=== PATIENT | male | born 1985 | race Caucasian/White ===

== ENCOUNTER 2020-08-27 17:42 | Emergency (ER) | payer OTHER, SELFPAY ==
[2020-08-27 18:05] VITALS: BP 130/92; PULSE 100; RESP 18; TEMP 36.6; O2SAT 100
--- NOTE | 2020-08-27 18:25 | ED.LOWEXIN ---
HPI - Extremity Injury (Lower) General Chief Complaint: Extremity Injury, Lower Stated Complaint: Rt knee pain Source: patient and RN notes reviewed Mode of arrival: ambulatory (Require chest) History of Present Illness HPI Narrative: This is a 35-year-old male that presented to urgent care with complaints a swollen, warm, tender to touch right knee. According to patient he developed what he describes as gout to his right lateral side of his foot which resolved with the use of naproxen. He notes that shortly afterwards he developed gout to his right knee noted that naproxen did not resolve pain and tenderness that he was experiencing in his right knee. Patient does have a history of gout. He notes that he took over prescription allopurinol without any relief. Patient is currently ambulating with crutches and have limited range of motion due to pain to the right knee. The patient denies SOB, CP, palpitation, extremity numbness, lightheadedness, dizziness, constipation, diarrhea, chills, or fever. Patient denies any trauma to that knee. Patient also notes that he has been experiencing the knee pain for approximately 4 days. Related Data Home Medications Medication Instructions Recorded Confirmed No Home Medications 08/27/20 08/27/20 Allergies Allergy/AdvReac Type Severity Reaction Status Date / Time No Known Allergies Allergy Verified 08/27/20 17:56 Review of Systems Review of Systems: Narrative: A 14 organ system Review of Systems was performed and pertinent positives included in the HPI, otherwise remaining ROS is negative. All systems reviewed & are unremarkable except as noted in HPI and below PMFSH Family History Family History (Updated 06/14/16 @ 12:21 by DOCTOR UNKNOWN) Mother Patient's mother is in good health Father Patient's father is in good health Social History Social History Smoking status: Never smoker Second hand tobacco smoke exposure: No Alcohol intake: current Gender identity (if verbalized by the patient): Male Sexual Orientation (if Verbalized by the Patient): Straight or Heterosexual Exam Narrative: Exam Narrative: GENERAL: This is a well-nourished, well-developed patient, in no apparent distress. HEAD: normocephalic, atraumatic. EYES: PERRL. Sclera clear/white. Vision is grossly intact. EARS: External ears normal, auditory canals clear and without drainage, TMs normal without perforation. Hearing grossly intact. NOSE: External nose normal with no obvious nasal discharge, nares without redness, no rhinorrhea. THROAT: Mucous membranes moist, posterior pharynx clear. NECK: Neck supple, non-tender without lymphadenopathy, masses or thyromegaly. CARDIOVASCULAR: Regular rate and rhythm without murmurs, gallops, or rubs. RESPIRATORY: Clear to auscultation. Breath sounds equal bilaterally. No wheezes, rales, or rhonchi. GASTROINTESTINAL: Abdomen soft, non-tender, nondistended. Bowel sounds are active. No hepato-splenomegaly, or palpable masses. No guarding. SKIN: warm, intact with no suspicious lesions or rash, good texture and turgor. NEURO: awake, alert, and oriented to person, place and time. There were no obvious focal neurologic abnormalities. Steady gait EXTREMITIES: Limited range of motion to the right knee. Right knee tender to touch, with edema and small amount of erythema, warm to touch limited range of motion. Sensations and pulses are positive BACK: Nontender without deformity or crepitance. No flank tenderness. Course Course Emergency Course: Patient will be treated for gout also given prednisone with naproxen and a short amount of [place] Vital Signs Vital signs: Vital Signs Temperature 97.8 F 08/27/20 18:05 Pulse Rate 100 08/27/20 18:05 Respiratory Rate 18 08/27/20 18:05 Blood Pressure 130/92 H 08/27/20 18:05 Pulse Oximetry 100 08/27/20 18:05 Temperature 97.8 F 08/27/20 18:05 Pulse Rate 100 08/27/20 18:05 Respiratory Rate 18
== END 2020-08-27 18:26 | disposition home or self-care (01) ==
PROVIDERS: Emergency Provider Nurse Practitioner; PCP Family Medicine
DX: M10.9 Gout, unspecified (principal)
CPT/HCPCS: 99213; G0463

== ENCOUNTER → 2020-12-13 11:25 | Outpatient (CLI) | payer OTHER, SELFPAY ==
--- NOTE | ~2020-12-13 | XR_ITS ---
EXAMINATION: XR knee RT 3V DATE: 12/13/2020 11:46 INDICATION: Right knee pain TECHNIQUE: Three views of the right knee were obtained. COMPARISON: None. FINDINGS: Alignment is normal. No fracture or osteochondral lesion. There is mild tricompartmental os teoarthritis characterized by tiny marginal osteophytes. There is a small knee joint effusion. Soft t issues are unremarkable. IMPRESSION: 1. Small joint effusion and mild osteoarthritis without acute findings. Reviewed, dictated and finalized at location B. UCT SUPPORT CONSULTANT
== END ==
PROVIDERS: PCP Family Medicine; Visit Provider Family Medicine
DX: M25.569 Pain in unspecified knee (principal); M25.461 Effusion, right knee; M17.11 Unilateral primary osteoarthritis, right knee
CPT/HCPCS: 73562

== ENCOUNTER → 2023-02-13 07:45 | Outpatient (CLI) | payer BC, SELFPAY ==
--- NOTE | ~2023-02-13 | US_ITS ---
EXAMINATION: US abdomen limited DATE: 02/13/2023 08:12 INDICATION: Abnormal levels of other serum enzymes. TECHNIQUE: Multiple grayscale and Doppler ultrasound images of the abdomen were obtained. COMPARISON: None FINDINGS: The visualized portions of the head and body of the pancreas are normal. There is diffuse h epatic steatosis. No liver surface nodularity. The gallbladder is normal in size. No gallstones or ga llbladder wall thickening. There is no sonographic Muir sign. The common duct is normal and measure s 5 mm. Right kidney is normal. IMPRESSION: 1. Diffuse hepatic steatosis. Reviewed, dictated and finalized at location A. US RECRUITER
== END ==
PROVIDERS: PCP Physician Assistant; Visit Provider Physician Assistant
DX: K76.0 Fatty (change of) liver, not elsewhere classified (principal); R74.8 Abnormal levels of other serum enzymes
CPT/HCPCS: 76705

== ENCOUNTER 2024-03-27 00:18 | Day surgery (SDC) | payer BC, SELFPAY ==
[2024-03-11 14:28] VITALS: BMI 25.9
--- OUTSIDE RECORDS SUMMARY | 2024-03-27 00:21 | XMS_ITS | Clinical Summary ---
Author Organization [facility] Address [address] [place] [id number] Care Team Providers Care Caustic Strength Inspector Name Role Phone Unavailable Primary Care Provider Unavailabl e Social History Tobacco Use Types Packs/Day Years Used Date Smoking Tobacco: Never Assessed Sex and Gender Information Value Date Recorded Sex Assigned at Not on file Legal Sex Male 5:37 PM CDT Gender Identity Not on file Sexual Orientation Not on file Last Filed Vital Signs Vital Sign Reading Time Taken Comments Blood Pressure 122/58 06/23/2016 1:53 PM CDT Pulse 81 06/23/2016 1:53 PM CDT Temperature - - Respiratory Rate - - Oxygen Saturation - - Inhaled Oxygen Concentration - - Weight 77.2 kg (170 lb 4 oz) 06/23/2016 1:53 PM CDT Height 177.8 cm (5' 10 ) 06/23/2016 1:53 PM CDT Body Mass Index 24.43 06/23/2016 1:53 PM CDT Plan of Treatment Health Maintenance Due Date Last Done Comments Annual Physical 1988 Hepatitis C 08/15/2003 DTaP, Tdap and Td Vaccines ( 1 - Tdap) 2004 Hepatitis B Vaccines (1 of 3 - 19+ 3-dose series) 2004 COVID-19 Vaccine (2023-2 5 season) 2023 Influenza Adult (#1) 2023 HPV Vaccines Aged Out No longer eligi ble based on patient's age to complete this topic Meningococcal B Vaccine Aged Out No l onger eligible based on patient's age to complete this topic Meningococcal Vaccine Aged Out No renetta fox eligible based on patient's age to complete this topic Pneumococcal Vaccine: Pediat rics (0 to 5 Years) and At-Risk Patients (6 to 64 Years) Aged Out No longer eligible b ased on patient's age to complete this topic RSV Immunizations Under 20 Months Aged Out No longer eligible based on patient's age to complete this topic
[2024-03-27 09:15] VITALS: BP 137/97; PULSE 89; RESP 18; TEMP 36.2; O2SAT 100
--- NOTE | 2024-03-27 09:19 | P.PNAN_ITS ---
Anes - Initial Pre Proc Eval Procedure: Operation Date: 03/27/24 10:30 Proposed Procedures p Colonoscopy - Logan Horner MD s [facility] Hemorrhoid Treatment - Logan Horner MD Date/Time: 03/27/24 09:19 Surgeon: Logan Horner MD Pre Op Diagnosis: hem or anus/rectum Patient Data Age: 38 Gender: M Height: 1.78 m Weight: 80.9 kg Last Vital Signs Temp 97.2 F L 03/27/24 09:15 Pulse 89 03/27/24 09:15 Resp 18 03/27/24 09:15 BP 137/97 H 03/27/24 09:15 Pulse Ox 100 03/27/24 09:15 O2 Del Method Room Air 03/27/24 09:15 Allergies Allergy/AdvReac Type Severity Reaction Status Date / Time No Known Allergies Allergy Verified 03/27/24 09:13 Home Medications ?Medication ?Instructions ?Recorded ?Confirmed ?Type allopurinol 300 mg tablet See Rx Instructions .Route 07/17/23 03/27/24 Rx .COMPLEX #45 tabs fluoxetine 10 mg capsule 10 mg PO DAILY #30 caps 10/22/23 03/27/24 Rx clotrimazole-betamethasone 1 1 applic topical BID #45 grams 02/05/24 03/27/24 Rx %-0.05 % topical cream Patient hx anesthesia problems: none Family hx anesthesia problems: none Results Review: All pre-operative results and documents have been reviewed as part of the pre- operative evaluation. [facility] Past Medical History Medical History Seasonal depression Gout Family History Family History Mother Patient's mother is in good health Father Parkinson disease Skin cancer Social History Social History Smoking status: Current every day smoker Tobacco type: cigarettes Second hand tobacco smoke exposure: No Additional smoking assessment comments: 1 pack per week Alcohol intake: current Drinks per week: 30 Alcohol use details: most nights, beer Substance use: never Substance use type: marijuana Lack of Transportation: No Lack of Food: Never True Current Housing: I Have Housing Concerned About Future Housing: No Difficulty Paying Gas/Electric Bills: No Difficulty Paying for Meds: Decline to Answer Currently Unemployed: No Education: Bachelor's Degree Difficulty w/ Childcare or Family Care: No Living arrangements: with family Gender identity (if verbalized by the patient): Male Sexual Orientation (if Verbalized by the Patient): Straight or Heterosexual Spiritual care concerns: No Agree to blood products: Yes Anes - Eval Final PreProcedure Day of Procedure 03/27/24 09:19 Patient weight: normal Lungs: normal air movement Airway: Mallampati scale class II Neurological: alert and oriented Last oral intake: >/= 8 hours ASA classification: II Emergent: no Anesthetic plan: proceed Anesthesia type and monitoring: general GIVS and standard monitoring Results Review: All pre-operative results and documents have been reviewed as part of the pre- operative evaluation. Informed Consent: The patient's anesthetic plan and its attendant risks and benefits were discussed with the patient/family/POA. Questions were solicited and answers p rovided to the satisfaction of the patient/family/POA.
[2024-03-27] MEDS: LACTATED RINGERS 1,000 ML 150 ML IV CONT (09:24)
--- NOTE | 2024-03-27 09:51 | PM.HPGS ---
History of Present Illness History of Present Illness Consent: Risks, benefits, and alternatives have been discussed and questions answered. Patient agrees to proceed with procedure. Chief complaint: hem or anus/rectum Narrative: Lexx Lowery is a 38 year old male with intermittent blood in stools for years, never had colonoscopy Review of Systems Review of Systems: All systems reviewed & are unremarkable except as noted in HPI and below PMFSH Past Medical History Medical History Seasonal depression Gout Family History Family History Mother Patient's mother is in good health Father Parkinson disease Skin cancer Social History Social History Smoking status: Current every day smoker Tobacco type: cigarettes Second hand tobacco smoke exposure: No Additional smoking assessment comments: 1 pack per week Alcohol intake: current Drinks per week: 30 Alcohol use details: most nights, beer Substance use: never Substance use type: marijuana Lack of Transportation: No Lack of Food: Never True Current Housing: I Have Housing Concerned About Future Housing: No Difficulty Paying Gas/Electric Bills: No Difficulty Paying for Meds: Decline to Answer Currently Unemployed: No Education: Bachelor's Degree Difficulty w/ Childcare or Family Care: No Living arrangements: with family Gender identity (if verbalized by the patient): Male Sexual Orientation (if Verbalized by the Patient): Straight or Heterosexual Spiritual care concerns: No Agree to blood products: Yes Meds Home Medications and Allergies Home Medications ?Medication ?Instructions ?Recorded ?Confirmed ?Type allopurinol 300 mg tablet See Rx Instructions .Route 07/17/23 03/27/24 Rx .COMPLEX #45 tabs fluoxetine 10 mg capsule 10 mg PO DAILY #30 caps 10/22/23 03/27/24 Rx clotrimazole-betamethasone 1 1 applic topical BID #45 grams 02/05/24 03/27/24 Rx %-0.05 % topical cream Allergies Allergy/AdvReac Type Severity Reaction Status Date / Time No Known Allergies Allergy Verified 03/27/24 09:13 Vital Signs Vital Signs - 24 hr 03/27/24 09:15 Temperature 97.2 F L Pulse Rate 89 Respiratory Rate 18 Blood Pressure 137/97 H Pulse Oximetry 100 Oxygen Delivery Room Air Exam Const: General: comfortable and no acute distress HENMT: Face/Nose/Sinus: Normal nares present Eyes: General: appearance normal, both eyes and all related structures Neck: Neck: no JVD Resp: Auscultation: clear to auscultation bilaterally Cardio: Rate: regular rate Rhythm: regular rhythm GI: Inspection: non-distended GI Palp: Yes Soft to palpation Skin: General skin exam: normal color Neuro: General: gait normal Speech: normal speech Extrem: General: normal to inspection Psych: Mental Status: mental status grossly normal Assessment and Plan Assessment and plan (1) Rectal bleeding: Code(s): K62.5 - Hemorrhage of anus and rectum Status: Acute Assessment and Plan: colonoscopy if I see internal hemorrhoids then I will treat with IRC
[2024-03-27 10:07] VITALS: BP 107/56; PULSE 72; RESP 15; O2SAT 96
--- NOTE | 2024-03-27 10:08 | W.PM.PROC2 ---
Procedure Note - Detailed Date of Procedure 03/27/24 Pre-op Diagnosis hemorrhoids Post-op Diagnosis Same Procedure Performed IRC of internal hemorrhoid Surgeon Logan Horner MD Anesthesia MAC (also had colonoscopy) Findings small internal hemorrhoids Description of Procedure with anoscope noted small internal hemorrhoids, no bleeding, no fissure, no lesion. Then introduced IRC probe and hemorrhoids treated for 1.5 seconds x6
[2024-03-27 10:17] VITALS: BP 111/80; PULSE 73; RESP 20; O2SAT 98
[2024-03-27 10:27] VITALS: BP 120/93; PULSE 77; RESP 19; O2SAT 100
== END 2024-03-27 10:40 | disposition home or self-care (01) ==
PROVIDERS: PCP Family Medicine; Referring Provider Nurse Practitioner; Visit Provider Internal Medicine Gastroenterology
PROC: 0DJD8ZZ Inspection of Lower Intestinal Tract, Via Natural or Artificial Opening Endoscopic (ICD-10-PCS; CPT 45378; principal; 2024-03-27 10:30)
PROC: (CPT 46930; 2024-03-27 10:30)
DX: K92.1 Melena (principal); K64.8 Other hemorrhoids; F17.210 Nicotine dependence, cigarettes, uncomplicated
CPT/HCPCS: 45378; 46930; J2003; J2704; J7120

== ENCOUNTER 2024-09-11 10:15 | Outpatient (CLI) | payer BC, SELFPAY ==
--- OUTSIDE RECORDS SUMMARY | 2024-09-11 10:30 | XMS_ITS | Clinical Summary ---
Author Organization [facility] Address [address] [place] [address] Care Team Providers Care Section Cutter Name Role Phone Unavailable Primary Care Provider [...] 1:53 PM CDT Height 177.8 cm (5' 10) 06/23/2016 1:53 PM CDT Body Mass Index 24.43 06/23/2016 1:53 PM CDT Plan of Treatment Health Maintenance Due Date Last Done Comments Annual Physical 1988 Hepatitis C 08/15/2003 DTaP, Tdap and Td Vaccines ( 1 - Tdap) 2004 Hepatitis B Vaccines (1 of 3 - 19+ 3-dose series) 2004 HPV Vaccines (1 - 3-dose SCD M series) 2012 COVID-19 Vaccine ( - 2023-2 5 season) 2023 Meningococcal B Vaccine Aged Out No l onger eligible based on patient's age to complete this topic Meningococcal Vaccine Aged Out No renetta fox eligible based on patient's age to complete this topic Pneumococcal Vaccine: Pediat rics (0 to 5 Years) and At-Risk Patients (6 to 49 Years) Aged Out No longer eligible b ased on patient's age to complete this topic RSV Immunizations Under 20 Months Aged Out No longer eligible based on patient's age to complete this topic
[2024-09-11 11:07] LABS: Hematocrit 46.2 % (42.0-52.0); Hemoglobin 16.2 g/dL (14.0-18.0); Mean Corpuscular HGB Conc 35.1 g/dl (32-36); Mean Corpuscular Hemoglobin 34.8 pg (26-34); Mean Corpuscular Volume 99.1 fl (80-100); Platelet Count Result 171 k/mm3 (150-375); Red Blood Count 4.66 M/mm3 (4.6-6.20); White Blood Count 5.5 K/mm3 (4.5-10.0)
[2024-09-11 11:18] LABS: INR 1.0; Prothrombin Time 13.4 Seconds (11.1-14.7)
[2024-09-11 11:28] LABS: Iron 220 ug/dL (49-181)
[2024-09-11 11:30] LABS: Alanine Aminotransferase 53 U/L (6-50); Albumin Level 4.9 g/dL (3.5-5.1); Alkaline Phosphatase 79 U/L (38-126); Anion Gap 15 mmol/L (4-12); Aspartate Amino Transferase 54 U/L (17-59); Bilirubin,Total 0.7 mg/dL (0.2-1.3); Blood Urea Nitrogen 6 mg/dL (9-20); Calcium 9.7 mg/dL (8.4-10.2); Carbon Dioxide 24 mmol/L (22-30); Chloride 100 mmol/L (98-107); Estimated Glomerular Filt Rate > 60; Glucose 78 mg/dL (65-110); Potassium 3.9 mmol/L (3.4-5.0); Sodium 139 mmol/L (137-145); Total Protein 8.9 g/dL (6.3-8.2)
[2024-09-11 11:38] LABS: Percent Iron Saturation 65 % (20-50)
[2024-09-11 11:41] LABS: Immunoglobulin G 1048 mg/dL (700-1600)
[2024-09-11 12:23] LABS: Ferritin 57.00 ng/mL (17.9-464)
[2024-09-11 12:24] LABS: HAV RESULT Negative (Negative); Hepatitis B Core IgM Result Negative (Negative); Hepatitis B Surface Antigen Negative (Negative)
[2024-09-11 14:35] LABS: HBSAB RETEST 1 5.70 S/C
[2024-09-11 14:38] LABS: Hepatitis B Surface Anti Res Indeterminate
[2024-09-11 14:39] LABS: HBSAB RETEST 2 5.80 S/C
[2024-09-12 06:08] LABS: Hep A Ab, Total Negative (Negative); Hep B Core Ab, Total Negative (Negative)
[2024-09-12 09:08] LABS: GGT 133 IU/L (0-65)
[2024-09-12 18:08] LABS: ANA by IFA Rfx Titer/Pattern Negative (.)
== END 2024-09-11 10:16 | disposition home or self-care (01) ==
LOC: ANHLAB 10:17
PROVIDERS: PCP Family Medicine; Visit Provider Nurse Practitioner
DX: K70.0 Alcoholic fatty liver (principal); R74.8 Abnormal levels of other serum enzymes
CPT/HCPCS: 36415; 80053; 80074; 82103; 82104; 82105; 82248; 82390; 82728; 82784; 82977; 83540; 83550; 85027; 85610; 86015; 86038; 86376; 86381; 86704; 86706; 86708

== ENCOUNTER 2024-10-28 10:54 | Outpatient (CLI) | payer BC, SELFPAY ==
--- OUTSIDE RECORDS SUMMARY | 2024-10-28 11:41 | XMS_ITS | Clinical Summary ---
Author Organization [facility] Address [address] [place] [id number] Care Team Providers Care Weapons Mechanic Name Role Phone Jillian Mercedes PA-C Primary Care Provider [phone]- [phone] Encounters Date Type Department Care Team Description 10/07/2024 8:17 AM CDT - 10/07/2024 11:59 PM CDT Hospital Encounter [facility] Ultrasound [address] [place], [place] [id number] Darlene Gomez, BIANCA Discharge Disposition: Home or Self Care (Routine Discharge) 10/07/2024 Travel from Last 3 Months Social History Tobacco Use Types Packs/Day Years Used Date Smoking Tobacco: Never Assessed Sex and Gender Information Value Date Recorded Sex Assigned at Male 09/23/2024 1:51 PM CDT Legal Sex Male 5:37 PM CDT Gender [...] 3-dose SCD M series) 2012 COVID-19 Vaccine (2024-2 6 season) 2024 12/23/2020, 05/01/2020, 04/08/2020 Meningococcal B Vaccine Aged Out No l onger eligible based on patient's age to complete this topic Meningococcal Vaccine Aged Out No renetta fox eligible based on patient's age to complete this topic Pneumococcal Vaccine: Pediatrics (0 to 5 Years) and At-Risk Patients (6 to 49 Years) Aged Out No longer eligible b ased on patient's age to complete this topic RSV Immunizations Under 20 Months Aged Out No longer eligible b ased on patient's age to complete this topic Procedures Procedure Name Priority Date/Time Associated Diagnosis Comments US ABD LIMITED Routine 10/07/2024 8:38 AM CDT Alcoholic fatty liver Abnormal levels of other serum enzymes Thrombocytopenia, unspecified from Last 3 Months Results * US ABD LIMITED (10/07/2024 8:38 AM CDT) Anatomical Region Laterality Modality Abdomen Ultrasound 10/07/2024 9:17 AM CDT Impressions 10/07/2024 9:20 AM CDT IMPRESSION: Moderate fatty infiltration of the liver. No focal mass. No adjacent ascites. Ordered By: DARLENE GOMEZ Interpreted By: Nain Bailon, 10/07/2024 9:17 AM Narrative 10/07/2024 9:20 AM CDT [facility] [address] [place] [address] IMAGING STUDIES: US ABD LIMITED DATE: 10/07/2024 8:18 AM COMPARISON STUDIES: No previous exams available. Correlation with CT abdomen of 06/30/2016 CLINICAL HISTORY: Alcoholic fatty liver, Abnormal levels of other serum enzymes, Thrombocytopenia, unspecified. FINDINGS: Normal appearance to the gallbladder without calculi. No gallbladder wall thickening. Moderate fatty infiltration of the liver without focal mass..Hepatic and portal veins are patent.. Common bile duct measures.3.7 mm. Right kidney measures9.8 x 4.0 x 6.1 cm.. No focal mass or hydronephrosis. Partially visualized pancreas without gross abnormality. Procedure Note Leroy Bailon MD - 10/07/2024 [facility] [address] [place] [address] IMAGING STUDIES: US ABD LIMITED DATE: 10/07/2024 8:18 AM COMPARISON STUDIES: No previous exams available. Correlation with CTabdomen of 06/30/2016 CLINICAL HISTORY: Alcoholic fatty liver, Abnormal levels of other serumenzymes, Thrombocytopenia, unspecified. FINDINGS: Normal appearance to the gallbladder without calculi. No gallbladder wallthickening. Moderate fatty infiltration of the liver without focal mass..Hepatic andportal veins are patent.. Common bile duct measures.3.7 mm. Right kidney measures9.8 x 4.0 x 6.1 cm.. No focal mass orhydronephrosis. Partially visualized pancreas without gross abnormality. IMPRESSION: Moderate fatty infiltration of the liver. No focal mass. No adjacentascites. Ordered By: DARLENE GOMEZ Interpreted By: Nain Bailon, 10/07/2024 9:17 AM Darlene Gomez [facility] ULTRASOUND Final Result from Last 3 Months Insurance [facility] Care Teams Weapons Mechanic Relationship Specialty Start Date End Date Jillian Mercedes PA-C [address] [place] [id number] PCP - General PHYSICIAN LITHOGRAPHED PLATE INSPECTOR 10/02/24
[2024-10-28 11:49] LABS: Alanine Aminotransferase 22 U/L (6-50); Albumin Level 4.6 g/dL (3.5-5.1); Alkaline Phosphatase 68 U/L (38-126); Aspartate Amino Transferase 25 U/L (17-59); Bilirubin,Total 0.4 mg/dL (0.2-1.3); Total Protein 8.1 g/dL (6.3-8.2)
[2024-10-28 12:10] LABS: Iron 43 ug/dL (49-181)
[2024-10-28 12:20] LABS: Percent Iron Saturation 12 % (20-50)
[2024-10-28 12:46] LABS: Ferritin 20.10 ng/mL (17.9-464)
[2024-10-29 10:09] LABS: GGT 21 IU/L (0-65)
== END 2024-10-28 10:55 | disposition home or self-care (01) ==
LOC: ANHLAB 10:55
PROVIDERS: PCP Family Medicine; Visit Provider Nurse Practitioner
DX: R74.8 Abnormal levels of other serum enzymes (principal); K70.0 Alcoholic fatty liver
CPT/HCPCS: 36415; 80076; 82728; 82977; 83540; 83550